=== PATIENT | female | born 1975 | race Two or more races ===

== ENCOUNTER 2021-02-17 10:37 | Outpatient (REF) | payer BC, SELFPAY ==
[2021-02-17 14:19] LABS: MANUAL DIFF FLAG NO
[2021-02-17 14:27] LABS: Basophils Absolute Auto 0.1 X10*3/uL (0.0-0.2); Eosinophils Absolute Auto 0.3 X10*3/uL (0.0-0.4); Eosinophils Percent Auto 5.3 % (0-4); Hematocrit 39.4 % (37-47); Hemoglobin 12.8 g/dl (12.0-16.0); Imm Gran Abs Auto 0.01 X10*3/uL (0.00-0.03); Imm Gran Pct Auto 0.2 % (0.0-0.4); Lymphocytes Absolute Auto 2.2 X10*3/uL (1.2-4.9); Lymphocytes Percent Auto 42.6 % (20-40); Mean Corpuscular HGB Conc 32.5 g/dl (31.0-35.0); Mean Corpuscular Hemoglobin 29.8 pg (27.0-33.0); Mean Corpuscular Volume 91.6 fL (80-98); Monocytes Absolute Auto 0.4 X10*3/uL (0.1-1.2); Monocytes Percent Auto 8.4 % (2-11); Neutrophils Absolute Auto 2.2 X10*3/uL (2.0-8.3); Neutrophils Percent Auto 42.5 % (45-73); Platelet Count 312 X10*3/uL (160-400); Red Cell Distribution Width 14.7 % (11.0-16.0); White Blood Count 5.1 X10*3/uL (4.8-10.8)
[2021-02-17 15:01] LABS: Alanine Aminotransferase 39 U/L (0-31); Albumin Level 4.6 g/dL (3.5-5.0); Alkaline Phosphatase 47 U/L (39-117); Anion Gap 14 (12-20); Aspartate Amino Transferase 57 U/L (5-31); Bilirubin Total 0.5 mg/dL (0.0-1.0); Blood Urea Nitrogen 19 mg/dL (9-16); Calcium 9.8 mg/dL (8.4-10.2); Carbon Dioxide 28 mmol/L (22-29); Chloride 100 mmol/L (96-108); Estimated Glomerular Filt Rate > 60; Glucose Random 80 mg/dL (60-115); Potassium 4.1 mmol/L (3.3-5.1); Sodium 138 mmol/L (135-145); Total Protein 7.7 g/dL (6.5-8.0)
== END 2021-02-17 10:38 | disposition home or self-care (01) ==
LOC: HO.HMGCLDS 10:37
PROVIDERS: Visit Provider Family Medicine
DX: Z79.899 Other long term (current) drug therapy (principal)
CPT/HCPCS: 36415; 80053; 85025

== ENCOUNTER 2021-03-29 10:27 | Outpatient (REF) | payer BC, SELFPAY ==
[2021-03-29 14:29] LABS: Alanine Aminotransferase 20 U/L (0-31); Albumin Level 4.1 g/dL (3.5-5.0); Alkaline Phosphatase 42 U/L (39-117); Aspartate Amino Transferase 28 U/L (5-31); Total Protein 6.7 g/dL (6.5-8.0)
[2021-03-29 14:48] LABS: Bilirubin Direct < 0.2 mg/dL (0.0-0.5); Bilirubin Total 0.4 mg/dL (0.0-1.0)
[2021-03-30 09:51] LABS: DHEA Sulfate 190 mcg/dL (19-231)
[2021-04-02 11:51] LABS: Testosterone, Free 2.5 pg/mL (0.1-6.4); Testosterone, Total 26 ng/dL (2-45)
[2021-04-02 22:42] LABS: Progesterone 0.1 ng/mL
[2021-04-07 04:32] LABS: Estradiol Free 1.05 pg/mL; Estradiol, Ultrasensitive 64 pg/mL
== END 2021-03-29 10:28 | disposition home or self-care (01) ==
LOC: HO.HMGCLDS 10:27
PROVIDERS: PCP Internal Medicine; Visit Provider Family Medicine
DX: N95.8 Other specified menopausal and perimenopausal disorders (principal); R74.8 Abnormal levels of other serum enzymes
CPT/HCPCS: 36415; 80076; 82627; 82670; 82681; 84144; 84402; 84403

== ENCOUNTER 2021-08-22 | Outpatient (REF) | payer BC, SELFPAY ==
[2021-08-27 01:36] LABS: HPV mRNA E6/E7 Not Detected (Not Detected)
== END 2021-08-22 00:01 | disposition home or self-care (01) ==
LOC: HO.LNP
PROVIDERS: Visit Provider Internal Medicine
DX: Z01.419 Encounter for gynecological examination (general) (routine) without abnormal findings (principal); Z90.3 Acquired absence of stomach [part of]
CPT/HCPCS: 87624; 88142

== ENCOUNTER 2021-09-13 15:49 | Outpatient (REF) | payer BC, SELFPAY ==
[2021-09-13 16:35] LABS: Appearance Urine HAZY; Color Urine YELLOW; Glucose Urine UA NEG (NEG); Leukocyte Esterase Urine NEG (NEG); Nitrite Urine NEG (NEG); PH 7.5 (5.0-8.0); Specific Gravity - Urine 1.015 (1.005-1.025); Urine Blood NEG (NEG); Urine Ketones NEG (NEG); Urine Protein NEG (NEG-TRACE)
== END 2021-09-13 15:50 | disposition home or self-care (01) ==
LOC: HO.LAB 15:49
PROVIDERS: Visit Provider Internal Medicine
DX: R10.9 Unspecified abdominal pain (principal); R35.0 Frequency of micturition
CPT/HCPCS: 81003

== ENCOUNTER 2021-09-22 15:07 | Outpatient (REF) | payer BC, SELFPAY ==
--- NOTE | ~2021-09-22 | MM_ITS ---
EXAMINATION: MM SCREENING DIGITAL BREAST TOMOSYNTHESIS, BILATERAL CLINICAL INFORMATION: Screening. Asymptomatic. The lifetime risk of breast cancer based on the Tyrer-Cuzick Model is 5%. COMPARISON: Mammography: 02/14/2019, 02/09/2018, 12/02/2016 TECHNIQUE: Digital breast tomosynthesis is performed in both the craniocaudal and mediolateral oblique views along with computer-aided detection (CAD). Synthesized 2D images are generated from the tomosynthesis. FINDINGS: There are scattered areas of fibroglandular density (ACR BI-RADS breast composition Category b). There are no significant masses, abnormal calcifications, or other abnormalities. No developing density. No significant changes. Skin contours are smooth. MM/MM tomosynthesis screening BI IMPRESSION: No mammographic evidence of malignancy. ASSESSMENT: BI-RADS 1: Negative RECOMMENDATION: Routine annual mammography screening. This patient's information was entered into a reminder system with a target due date for their next mammogram.
== END 2021-09-22 15:08 | disposition home or self-care (01) ==
LOC: HO.MAMMO 15:07
PROVIDERS: PCP Internal Medicine; Visit Provider Internal Medicine
DX: Z12.31 Encounter for screening mammogram for malignant neoplasm of breast (principal)
CPT/HCPCS: 77063; 77067

== ENCOUNTER 2021-11-21 11:04 | Outpatient (REF) | payer BC, SELFPAY ==
--- NOTE | ~2021-11-21 | XR_ITS ---
EXAMINATION: XR CHEST CLINICAL INFORMATION: Covid infection COMPARISON: Previous chest x-ray December 2018 TECHNIQUE: Frontal view of the chest was obtained. FINDINGS: The cardiac and mediastinal contours are normal. The lungs are clear. There is no pleural effusion or pneumothorax. Bony structures are normal. There are surgical clips under the left hemidiaphragm. XR/XR chest 1V IMPRESSION: No evidence for acute disease in the chest.
[2021-11-21 11:30] LABS: Mean Corpuscular HGB Conc 33.3 g/dl (31.0-35.0); Mean Corpuscular Hemoglobin 29.3 pg (27.0-33.0); Mean Platelet Volume 9.5 fL (9.4-12.3); Platelet Count 305 X10*3/uL (160-400); Red Blood Count 4.09 X10*6/uL (4.20-5.50); White Blood Count 4.5 X10*3/uL (4.8-10.8)
[2021-11-21 12:12] LABS: Alanine Aminotransferase 16 U/L (0-31); Albumin Level 4.2 g/dL (3.5-5.0); Alkaline Phosphatase 51 U/L (39-117); Anion Gap 11 (12-20); Aspartate Amino Transferase 23 U/L (5-31); Bilirubin Total 0.4 mg/dL (0.0-1.0); Blood Urea Nitrogen 17 mg/dL (9-16); Calcium 9.6 mg/dL (8.4-10.2); Carbon Dioxide 29 mmol/L (22-29); Chloride 106 mmol/L (96-108); Cholesterol 204 mg/dL; Estimated Glomerular Filt Rate > 60; Glucose Fasting 67 mg/dL (60-99); HDL Cholesterol 86 mg/dL; LDL Cholesterol Calculated 112 mg/dl; Potassium 4.5 mmol/L (3.3-5.1); Sodium 141 mmol/L (135-145); Total Protein 7.2 g/dL (6.5-8.0); Triglycerides 33 mg/dL
[2021-11-21 12:34] LABS: TSH reflex Free T4 0.72 uIU/mL (0.32-4.0)
[2021-11-22 04:19] LABS: SARS COV2 IgG Negative (Negative)
== END 2021-11-21 11:05 | disposition home or self-care (01) ==
LOC: HO.LAB 11:04
PROVIDERS: Absent Provider Surgery Plastic and Reconstructive Surgery; PCP Internal Medicine; Visit Provider Internal Medicine
DX: Z00.00 Encounter for general adult medical examination without abnormal findings (principal); Z01.84 Encounter for antibody response examination; Z86.16 Personal history of COVID-19
CPT/HCPCS: 36415; 71045; 80053; 80061; 84443; 85027; 86769

== ENCOUNTER 2022-02-17 11:11 | Outpatient (REF) | payer BC, SELFPAY ==
--- NOTE | ~2022-02-17 | US_ITS ---
EXAMINATION: US ABDOMEN LIMITED CLINICAL INFORMATION: Status post abdominoplasty. Rule out hematoma. COMPARISON: None TECHNIQUE: Real-time imaging of the umbilical region as indicated by the patient. Scanning performed with patient supine and standing. FINDINGS: No hernia or free fluid identified. No significant hematoma is appreciated. No Doppler images were provided. US/US abdomen limited IMPRESSION: No evidence of hernia or other significant abnormality in region of patient's complaint.
== END 2022-02-17 11:12 | disposition home or self-care (01) ==
LOC: HO.HMGCX 11:11
PROVIDERS: PCP Internal Medicine; Visit Provider Internal Medicine
DX: Z98.890 Other specified postprocedural states (principal)
CPT/HCPCS: 76705

== ENCOUNTER 2022-12-08 08:11 | Outpatient (REF) | payer BC, SELFPAY ==
[2022-12-08 10:31] LABS: MANUAL DIFF FLAG NO
[2022-12-08 10:35] LABS: Basophils Percent Auto 0.7 % (0-2); Eosinophils Absolute Auto 0.3 X10*3/uL (0.0-0.4); Eosinophils Percent Auto 7.8 % (0-4); Hematocrit 38.8 % (37.0-47.0); Hemoglobin 13.1 g/dl (12.0-16.0); Imm Gran Abs Auto 0.01 X10*3/uL (0.00-0.03); Imm Gran Pct Auto 0.2 % (0.0-0.4); Lymphocytes Absolute Auto 1.7 X10*3/uL (1.2-4.9); Lymphocytes Percent Auto 39.7 % (20-40); Mean Corpuscular HGB Conc 33.8 g/dl (31.0-35.0); Mean Corpuscular Hemoglobin 29.4 pg (27.0-33.0); Mean Platelet Volume 9.6 fL (9.4-12.3); Monocytes Absolute Auto 0.2 X10*3/uL (0.1-1.2); Monocytes Percent Auto 5.4 % (2-11); Neutrophils Percent Auto 46.2 % (45-73); Platelet Count 276 X10*3/uL (160-400); Red Blood Count 4.46 X10*6/uL (4.20-5.50); Red Cell Distribution Width 13.8 % (11.0-16.0); White Blood Count 4.2 X10*3/uL (4.8-10.8)
[2022-12-08 11:30] LABS: Estimated Average Glucose 103 mg/dL; Hemoglobin A1c % 5.2 %
[2022-12-08 12:03] LABS: Alanine Aminotransferase 16 U/L (0-31); Albumin Level 4.5 g/dL (3.5-5.0); Alkaline Phosphatase 49 U/L (39-117); Anion Gap 16 (12-20); Aspartate Amino Transferase 28 U/L (5-31); Bilirubin Direct < 0.2 mg/dL (0.0-0.5); Bilirubin Total 0.5 mg/dL (0.0-1.0); Blood Urea Nitrogen 17 mg/dL (9-16); C Reactive Protein 0.11 mg/dL (< or = 0.50); Calcium 9.9 mg/dL (8.4-10.2); Carbon Dioxide 26 mmol/L (22-29); Chloride 104 mmol/L (96-108); Cholesterol 263 mg/dL; Estimated Glomerular Filt Rate > 60; Glucose Random 78 mg/dL (60-115); HDL Cholesterol 93 mg/dL; LDL Cholesterol Calculated 161 mg/dl; Potassium 4.8 mmol/L (3.3-5.1); Sodium 141 mmol/L (135-145); Total Protein 7.4 g/dL (6.5-8.0); Triglycerides 46 mg/dL
[2022-12-08 12:16] LABS: Folate 16.9 ng/mL (> or = 4.0); Vitamin B12 987 pg/mL (200-900); Vitamin D 25-OH Total 56.5 ng/mL (>30)
[2022-12-08 12:57] LABS: Insulin 2 uU/mL (2-29); Thyroid Stimulating Hormone 1.18 uIU/mL (0.32-4.0)
[2022-12-12 15:43] LABS: Zinc 80 mcg/dL (60-130)
[2022-12-12 18:28] LABS: Vitamin C 0.7 mg/dL (0.3-2.7)
[2022-12-13 18:24] LABS: Selenium, Serum 173 mcg/L (63-160)
[2022-12-13 22:44] LABS: Vitamin A 47 mcg/dL (38-98)
[2022-12-15 17:03] LABS: Vitamin B6 89.1 ng/mL (2.1-21.7)
[2022-12-18 02:10] LABS: Vitamin B1 9 nmol/L (8-30)
== END 2022-12-08 08:12 | disposition home or self-care (01) ==
LOC: HO.LAB 08:11
PROVIDERS: PCP Internal Medicine; Visit Provider Physician Assistant
DX: E66.3 Overweight (principal); F41.9 Anxiety disorder, unspecified; F50.9 Eating disorder, unspecified; F51.09 Other insomnia not due to a substance or known physiological condition; F59 Unspecified behavioral syndromes associated with physiological disturbances and physical factors; K21.9 Gastro-esophageal reflux disease without esophagitis
CPT/HCPCS: 36415; 80048; 80061; 80076; 82180; 82306; 82607; 82746; 83036; 83525; 84207; 84255; 84425; 84443; 84590; 84630; 85025; 86140

== ENCOUNTER 2022-12-11 13:54 | Outpatient (REF) | payer BC, SELFPAY ==
--- NOTE | ~2022-12-11 | MM_ITS ---
EXAMINATION: MM SCREENING DIGITAL BREAST TOMOSYNTHESIS, BILATERAL CLINICAL INFORMATION: Screening. Asymptomatic. The lifetime risk of breast cancer based on the Tyrer-Cuzick Model is 5.4%. COMPARISON: Mammography: September 22, 2021 and studies dating back to June 07, 2015 TECHNIQUE: Digital mammography is performed in craniocaudal and mediolateral oblique views along with computer-aided detection (CAD). Digital breast tomosynthesis is performed in implant-displaced craniocaudal and implant-displaced mediolateral oblique views along with computer-aided detection (CAD). Synthesized 2D images are generated from the tomosynthesis. FINDINGS: There are scattered areas of fibroglandular density (ACR BI-RADS breast composition Category b). There are no significant masses, abnormal calcifications, or other abnormalities. Implants appear intact. MM/MM tomosynthesis screen imp BI IMPRESSION: No mammographic evidence of malignancy. ASSESSMENT: BI-RADS 1: Negative RECOMMENDATION: Routine annual mammography screening. This patient's information was entered into a reminder system with a target due date for their next mammogram.
== END 2022-12-11 13:55 | disposition home or self-care (01) ==
LOC: HO.MAMMO 13:54
PROVIDERS: PCP Internal Medicine; Visit Provider Internal Medicine
DX: Z12.31 Encounter for screening mammogram for malignant neoplasm of breast (principal)
CPT/HCPCS: 77063; 77067

== ENCOUNTER 2022-12-20 10:02 | Outpatient (REF) | payer OTHER, BC, SELFPAY ==
--- NOTE | ~2022-12-20 | XR_ITS ---
EXAMINATION: X-RAY CERVICAL SPINE X-RAY LUMBAR SPINE CLINICAL INFORMATION: Unspecified injury COMPARISON: None TECHNIQUE: Cervical spine 4 views. Lumbar spine 3 views. FINDINGS: Cervical spine: The vertebral body sagittal alignment is maintained. No prevertebral soft tissue swelling. Vertebral body heights are maintained. No evidence of acute fracture. Limited evaluation of the dens base, due to overlapping densities, with no obvious fracture identified on the provided views. Disc spaces are maintained. Lung apices are clear. Lumbar spine: Vertebral body sagittal alignment is anatomic. Vertebral body heights are maintained. No acute fracture or compression deformity seen. Disc spaces are maintained. Mild endplate spurring at multiple levels in the visualized spine. Facet degeneration in the lower lumbar spine. Surgical clips in the left abdomen. SI joints are intact.. XR/XR lumbar spine 2-3V IMPRESSION: Cervical spine: No evidence of acute fracture or malalignment. Slight suboptimal evaluation of the base of the dens, described above. Further evaluation with CT scan or MRI as clinically warranted. Lumbar spine: No evidence of acute fracture or malalignment. Mild lumbar spondylosis.
--- NOTE | ~2022-12-20 | XR_ITS ---
EXAMINATION: X-RAY CERVICAL SPINE X-RAY LUMBAR SPINE CLINICAL INFORMATION: Unspecified injury COMPARISON: None TECHNIQUE: Cervical spine 4 views. Lumbar spine 3 views. FINDINGS: Cervical spine: The vertebral body sagittal alignment is maintained. No prevertebral soft tissue swelling. Vertebral body heights are maintained. No evidence of acute fracture. Limited evaluation of the dens base, due to overlapping densities, with no obvious fracture identified on the provided views. Disc spaces are maintained. Lung apices are clear. Lumbar spine: Vertebral body sagittal alignment is anatomic. Vertebral body heights are maintained. No acute fracture or compression deformity seen. Disc spaces are maintained. Mild endplate spurring at multiple levels in the visualized spine. Facet degeneration in the lower lumbar spine. Surgical clips in the left abdomen. SI joints are intact.. XR/XR cervical spine 2V IMPRESSION: Cervical spine: No evidence of acute fracture or malalignment. Slight suboptimal evaluation of the base of the dens, described above. Further evaluation with CT scan or MRI as clinically warranted. Lumbar spine: No evidence of acute fracture or malalignment. Mild lumbar spondylosis.
[2022-12-20 11:30] LABS: Appearance Urine Clear; Color Urine Yellow; Glucose Urine UA Negative (Negative); Leukocyte Esterase Urine Negative (Negative); Nitrite Urine Negative (Negative); Specific Gravity - Urine >= 1.030 (1.005-1.025); UMIC TRIGGER UA YES; Urine Blood Moderate (2+) (Negative); Urine Ketones Negative (Negative); Urine Protein Negative (Neg-Trace)
[2022-12-20 11:34] LABS: Bacteria Urine None Seen (None Seen); Hyaline Casts Urine 0-2 /LPF (0-2); RBC Urine >20 /HPF (0-2); Squamous Epithelial Cell Urine 0-2 /HPF (0-2); WBC Urine 0-5 /HPF (0-5)
== END 2022-12-20 10:03 | disposition home or self-care (01) ==
LOC: HO.HMGCLDS 10:02
PROVIDERS: Visit Provider Internal Medicine
DX: S39.92XA Unspecified injury of lower back, initial encounter (principal); R31.9 Hematuria, unspecified; M54.2 Cervicalgia
CPT/HCPCS: 72040; 72100; 81001; 87086

== ENCOUNTER 2023-01-09 14:04 | Outpatient (REF) | payer OTHER, BC, SELFPAY ==
--- NOTE | ~2023-01-09 | US_ITS ---
EXAMINATION: US RETROPERITONEAL COMPLETE (RENAL) CLINICAL INFORMATION: Hematuria, unspecified. COMPARISON: Ultrasound abdomen limited 02/17/2022. TECHNIQUE: Real-time imaging of the kidneys and bladder. FINDINGS: RIGHT KIDNEY: 10.7 x 5.6 x 5.2 cm (SAG x AP x TRV). The kidney is normal in size, contour, and echogenicity. Renal cortical thickness is normal. No calculi or focal parenchymal lesions. No hydronephrosis. LEFT KIDNEY: 10.7 x 5.2 x 4.8 cm (SAG x AP x TRV). The kidney is normal in size, contour, and echogenicity. Renal cortical thickness is normal. No calculi or focal parenchymal lesions. No hydronephrosis. BLADDER: Well distended and normal. Bilateral ureteral jets are demonstrated. Prevoid bladder volume is 345 mL. Postvoid bladder volume is 19.5 mL. US/US retroperitoneal comp IMPRESSION: Unremarkable renal ultrasound.
== END 2023-01-09 14:05 | disposition home or self-care (01) ==
LOC: HO.US 14:04
PROVIDERS: PCP Internal Medicine; Visit Provider Internal Medicine
DX: R31.9 Hematuria, unspecified (principal)
CPT/HCPCS: 76770

== ENCOUNTER → 2023-01-15 12:00 | Outpatient (BNVA) | payer OTHER, BC, SELFPAY | PROVIDERS: PCP Internal Medicine; Visit Provider Obstetrics & Gynecology | DX: Z13.89 Encounter for screening for other disorder (principal) ==

== ENCOUNTER 2023-02-26 10:48 | Outpatient (REF) | payer BC, SELFPAY ==
--- NOTE | ~2023-02-26 | US_ITS ---
EXAMINATION: US PELVIS CLINICAL INFORMATION: Postmenopausal bleeding. COMPARISON: None available. TECHNIQUE: Ultrasound of the pelvis is performed using both transabdominal and transvaginal transducers along with Doppler. Transvaginal imaging is performed due to inadequate visualization transabdominally. FINDINGS: Uterus: The uterus is anteverted and measures 7.7 x 3.2 x 4.3 cm. The double wall endometrial thickness is 8 mm. The uterus is smooth in contour and has normal myometrial echogenicity. No visible fibroid. Adnexa: Right ovary is visualized. There is normal color flow to the adnexa. There is no ovarian torsion. There is no pelvic ascites or fluid collection. Right ovary measures 2.5 x 1.6 x 2.4 cm. Left ovary is not visualized, no large adnexal mass. US/US pelvic and transvaginal IMPRESSION: * Endometrial thickness is at the upper limits of normal in a postmenopausal patient measuring 8 mm. Recommend correlation with clinical history and gynecologic consult. * Left ovary is not visualized, no large adnexal mass.
== END 2023-02-26 10:49 | disposition home or self-care (01) ==
LOC: HO.US 10:48
PROVIDERS: PCP Internal Medicine; Visit Provider Obstetrics & Gynecology
DX: N95.0 Postmenopausal bleeding (principal)
CPT/HCPCS: 76830; 76856

== ENCOUNTER 2023-03-12 09:16 | Outpatient (REF) | payer BC, SELFPAY | END 2023-03-12 09:17 | disposition home or self-care (01) | LOC: HO.LNP 09:16 | PROVIDERS: PCP Internal Medicine; Visit Provider Obstetrics & Gynecology | DX: N95.0 Postmenopausal bleeding (principal); R31.9 Hematuria, unspecified | CPT/HCPCS: 58100; 81003; 88305 ==

== ENCOUNTER 2023-03-21 15:00 | Outpatient (RCR) | payer OTHER, BC, SELFPAY ==
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
--- NOTE | 2023-03-21 15:31 | MHC.PT.DC ---
[facility] [place] [facility] [place] [facility] [place] [facility] [address] [place] C[place] [address] [facility] [phone] F: [phone] F: [phone] F: [phone] F: [phone] Physical Therapy Discharge Report Diagnosis: injury of low back, cervicalgia Date of Surgery: n/a Date of Evaluation: 01/02/23 Date of Discharge: 03/21/23 Treatments to Date: 10 Cancellations to Date: 2 No Shows to Date: 0 Discharge Status: Recommend MD Follow-up Discharge Summary: 03/21/2023: Pt has made some progress since beginning PT. Her pain is better but she is still experiencing headaches that become quite severe at times. She had time off of work but has since returned. Her sx are especially worse when looking at screens or being in the car for long periods of time. At this point we have maximized all we can in PT. She is scheduled to see neurology in a couple weeks and I encouraged her to attend this appointment. She may benefit from continued PT with a therapist who specializes in concussions if symptoms continue. Electronically signed by: Cristal Isabel, PT, DPT, ATC Please sign and return to therapist. Thank you for your referral.
== END 2023-03-21 15:31 | disposition home or self-care (01) ==
LOC: HO.PTCHIC 15:00
PROVIDERS: PCP Internal Medicine; Visit Provider Internal Medicine
DX: M54.2 Cervicalgia (principal); S39.92XD Unspecified injury of lower back, subsequent encounter
CPT/HCPCS: 97014; 97110; 97140; 97161

== ENCOUNTER → 2023-04-09 08:37 | Outpatient (BNVA) | payer BC, SELFPAY | PROVIDERS: PCP Internal Medicine; Visit Provider Obstetrics & Gynecology ==

== ENCOUNTER → 2023-04-17 08:20 | Outpatient (BNVA) | payer BC, SELFPAY | PROVIDERS: PCP Internal Medicine; Visit Provider Nurse Practitioner Family ==

== ENCOUNTER 2023-05-31 14:00 | Outpatient (RCR) | payer OTHER, BC, SELFPAY ==
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
== END 2023-07-03 10:19 | disposition home or self-care (01) ==
LOC: HO.OT 14:00
PROVIDERS: PCP Internal Medicine; Visit Provider Nurse Practitioner Family
DX: F07.81 Postconcussional syndrome (principal)
CPT/HCPCS: 97165; 97530

== ENCOUNTER 2023-07-20 11:46 | Outpatient (AMB) | payer BC, SELFPAY ==
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
--- OUTSIDE RECORDS SUMMARY | 2023-07-20 11:47 | XMS_ITS | Continuity of Care Document ---
Author Name Unknown Organization [facility] Address [address] [facility] 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 Name Role Phone Darren Emery MD Primary Care Physician [phone] Encounter [facility] [place] Date(s): 02/22/23 - 03/24/23 [facility] [address] [place] [address] [address] [place] [address]- Allergies, Adverse Reactions, Alerts Substance Reaction Severity Status penicillins Active Medications One-A-Day Women 1 tablet, By Mouth, Daily, 0 Refills, Maintenance, 05/05/19 15:09:17 EDT Start Date: 05/05/19 Status: Ordered Problem List Condition Confirmation Course Effective Dates Status Health [facility] Informant Heartburn Confirmed Active Obesity Confirmed Active Patient Care team information Care Team Personnel Name: Darren Emery MD Position: Reference Physician Member Role: PCP Address: Address: [address] [place] [address]- Care Team Related Persons Name: ANTHONY VINCENT Address: home [address] [facility] [address] [place] [address]
== END 2023-07-20 12:50 | disposition home or self-care (01) ==
LOC: HO.HSMS 11:46
PROVIDERS: PCP Internal Medicine; Visit Provider Nurse Practitioner Family
DX: Z04.3 Encounter for examination and observation following other accident (principal); Z87.820 Personal history of traumatic brain injury; F07.81 Postconcussional syndrome; G44.309 Post-traumatic headache, unspecified, not intractable
CPT/HCPCS: 99214

== ENCOUNTER → 2023-07-20 11:46 | Outpatient (BNVA) | payer BC, SELFPAY | PROVIDERS: PCP Internal Medicine; Visit Provider Nurse Practitioner Family | DX: M54.9 Dorsalgia, unspecified (principal) ==

== ENCOUNTER 2023-07-21 07:41 | Outpatient (REF) | payer BC, SELFPAY ==
[2023-07-21 08:07] LABS: MANUAL DIFF FLAG NO
[2023-07-21 08:44] LABS: Basophils Percent Auto 0.7 % (0-2); Eosinophils Absolute Auto 0.2 X10*3/uL (0.0-0.4); Eosinophils Percent Auto 3.8 % (0-4); Hematocrit 36.8 % (37.0-47.0); Hemoglobin 12.3 g/dl (12.0-16.0); Imm Gran Abs Auto 0.01 X10*3/uL (0.00-0.03); Imm Gran Pct Auto 0.2 % (0.0-0.4); Lymphocytes Absolute Auto 2.2 X10*3/uL (1.2-4.9); Lymphocytes Percent Auto 49.7 % (20-40); Mean Corpuscular HGB Conc 33.4 g/dl (31.0-35.0); Mean Corpuscular Hemoglobin 29.6 pg (27.0-33.0); Mean Corpuscular Volume 88.5 fL (80.0-98.0); Mean Platelet Volume 9.9 fL (9.4-12.3); Monocytes Absolute Auto 0.3 X10*3/uL (0.1-1.2); Monocytes Percent Auto 7.2 % (2-11); Neutrophils Absolute Auto 1.7 x10*3/uL (2.0-8.3); Neutrophils Percent Auto 38.4 % (45-73); Platelet Count 249 X10*3/uL (160-400); Red Blood Count 4.16 X10*6/uL (4.20-5.50); Red Cell Distribution Width 13.9 % (11.0-16.0); White Blood Count 4.4 X10*3/uL (4.8-10.8)
[2023-07-21 09:29] LABS: Alanine Aminotransferase 24 U/L (0-31); Albumin Level 4.3 g/dL (3.5-5.0); Alkaline Phosphatase 43 U/L (39-117); Anion Gap 11 (12-20); Aspartate Amino Transferase 49 U/L (5-31); Bilirubin Total 0.3 mg/dL (0.0-1.0); Blood Urea Nitrogen 12 mg/dL (9-16); Calcium 9.8 mg/dL (8.4-10.2); Carbon Dioxide 29 mmol/L (22-29); Chloride 107 mmol/L (96-108); Estimated Glomerular Filt Rate > 60; Glucose Random 83 mg/dL (60-115); Potassium 4.6 mmol/L (3.3-5.1); Sodium 142 mmol/L (135-145); Total Protein 7.4 g/dL (6.5-8.0)
== END 2023-07-21 07:42 | disposition home or self-care (01) ==
LOC: HO.LAB 07:41
PROVIDERS: PCP Internal Medicine; Visit Provider Family Medicine
DX: Z79.899 Other long term (current) drug therapy (principal)
CPT/HCPCS: 36415; 80053; 85025

== ENCOUNTER 2023-11-13 11:03 | Outpatient (AMB) | payer BC, SELFPAY ==
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
== END 2023-11-13 16:06 | disposition home or self-care (01) ==
LOC: HO.HSMS 11:03
PROVIDERS: PCP Internal Medicine; Visit Provider Nurse Practitioner Family
DX: Z04.3 Encounter for examination and observation following other accident (principal); F07.81 Postconcussional syndrome; G44.309 Post-traumatic headache, unspecified, not intractable; Z04.1 Encounter for examination and observation following transport accident
CPT/HCPCS: 99214

== ENCOUNTER → 2023-11-13 11:03 | Outpatient (BNVA) | payer BC, SELFPAY | PROVIDERS: PCP Internal Medicine; Visit Provider Nurse Practitioner Family ==

== ENCOUNTER 2025-07-07 11:06 | Outpatient (REF) | payer BC, SELFPAY ==
[2025-07-07 12:55] LABS: MANUAL DIFF FLAG NO
[2025-07-07 12:59] LABS: Appearance Urine Clear; Glucose Urine UA Negative (Negative); PH 6.5 (5.0-9.0); Specific Gravity - Urine 1.020 (1.005-1.025); UMIC TRIGGER UA YES
[2025-07-07 13:12] LABS: Hematocrit 35.1 % (37.0-47.0); Hemoglobin 12.0 g/dl (12.0-16.0); Imm Gran Abs Auto 0.01 X10*3/uL (0.00-0.03); Imm Gran Pct Auto 0.2 % (0.0-0.4); Lymphocytes Absolute Auto 2.1 X10*3/uL (1.2-4.9); Mean Corpuscular HGB Conc 34.2 g/dl (31.0-35.0); Mean Corpuscular Hemoglobin 30.9 pg (27.0-33.0); Mean Corpuscular Volume 90.5 fL (80.0-98.0); NRBC Abs Auto 0.000 X10*3/uL (0.0-0.012); NRBC Pct Auto 0.0 /100WBC (0.0-0.2); Platelet Count 287 X10*3/uL (160-400); Red Blood Count 3.88 X10*6/uL (4.20-5.50); White Blood Count 5.3 X10*3/uL (4.8-10.8)
[2025-07-07 13:47] LABS: Alanine Aminotransferase 18 U/L (0-31); Albumin Level 4.5 g/dL (3.5-5.0); Alkaline Phosphatase 47 U/L (39-117); Anion Gap 12 (12-20); Aspartate Amino Transferase 33 U/L (5-31); Blood Urea Nitrogen 15 mg/dL (9-16); Calcium 9.3 mg/dL (8.4-10.2); Carbon Dioxide 28 mmol/L (22-29); Chloride 107 mmol/L (96-108); Cholesterol 209 mg/dL (<200); Estimated Glomerular Filt Rate > 60; HDL Cholesterol 84 mg/dL (>40); Potassium 4.2 mmol/L (3.3-5.1); Sodium 143 mmol/L (135-145); Total Protein 7.1 g/dL (6.5-8.0); Triglycerides 66 mg/dL (<150)
== END 2025-07-07 11:07 | disposition home or self-care (01) ==
LOC: HO.HMGCLDS 11:06
PROVIDERS: PCP Internal Medicine; Visit Provider Internal Medicine
DX: Z00.00 Encounter for general adult medical examination without abnormal findings (principal); Z12.11 Encounter for screening for malignant neoplasm of colon; Z92.89 Personal history of other medical treatment; R79.89 Other specified abnormal findings of blood chemistry
CPT/HCPCS: 36415; 80053; 80061; 81001; 84443; 85025; 96127

== ENCOUNTER 2025-07-07 11:06 | Outpatient (AMB) | payer BC, SELFPAY ==
--- NOTE | 2025-07-07 11:12 | A.OFFPC_ITS ---
Vital Signs 07/07/25 11:13 Height 5 ft 1 in Weight 132 lb BMI 24.9 BP 100/64 Blood Pressure Location Rt brachial Position Sitting Respiration 18 Pulse 68 Pulse Source Pulse Oximeter Temp 98.5 F Temp Source Oral Pulse Oximetry (%) 97 Oxygen Delivery Method Room Air Intake Visit Reasons: Kidney function Intake Note: Pt is here today for a follow up visit on new medication. Allergies Penicillins Allergy (Mild, Verified 07/07/25 11:16) RASH penicillin V Allergy (Unknown, Verified 07/07/25 11:16) rash Medication List - Last Reconciled 07/07/25 by Ashley Coker MD emtricitabine-tenofovir (TDF) 200-300 mg 1 tab PO DAILY ibuprofen 800 mg PO Q8H PRN lorazepam (Ativan) 0.5 mg PO DAILY PRN multivit with min-folic acid 200 mcg (Adult Multivitamin Gummies) tabs PO riboflavin (vitamin B2) 400 mg PO DAILY 30 days Tobacco use date assessed: 07/07/25 Dental Screening Dental Screen Date: 07/07/25 Did you have a dental visit in the last 12 months?: Yes Did you have a dental problem in the last 6 months where you did not have access to dental care?: No Was dental information given to patient?: Patient has dentist HPI Kidney function HPI Details Patient presents for the follow-up visit. She has been taking Truvada for HIV prophylaxis after she has started dating but was noted by her PCP in [place] that her creatinine level was elevated. Patient has stopped the medication. She denies any recent hospitalizations, radiology tests using IV contrast, hematuria, dysuria, change in urinary frequency. [facility] Medical History (Updated 07/07/25 @ 11:59 by Ashley Coker MD) Elevated serum creatinine Normal pelvic exam Colon cancer screening COVID Excess skin of abdomen Abdominal pain Annual physical exam Surgical History H/O abdominoplasty History of sleeve gastrectomy History of right oophorectomy Family History Father Hypertension Diabetes Mother Diabetes Other Mental health disorder Substance use disorder Social History Housing: House Alcohol intake: current Alcohol intake frequency: holidays/special occasions only Patient Tobacco Use Status: Never used Tobacco e-Cigarette/Vaping Use: Never Used service: No Current occupational status: employed Cognitive needs: No Hearing needs: No Vision needs: Yes Female Reproductive History Menstrual Age of Menarche: 11 Questionnaire PHQ-9 Over the last 2 weeks, how often have you been bothered by any of the following problems? 1. Little interest or pleasure in doing things: not at all 2. Feeling down, depressed, or hopeless: not at all 3. Trouble falling or staying asleep, or sleeping too much: not at all 4. Feeling tired or having little energy: not at all 5. Poor appetite or overeating: not at all 6. Feeling bad about yourself - or that you are a failure or have let yourself or your family down: not at all 7. Trouble concentrating on things, such as reading the newspaper or watching television: not at all 8. Moving or speaking so slowly that other people could have noticed. Or the opposite - being so fidgety or restless that you have been moving around a lot more than usual: not at all 9. Thoughts that you would be better off or of hurting yourself in some way: not at all Total score: 0 Depression Screening Interpretation: Negative Depression Screening Done: Yes 76846 - PHQ-9 Billing: Yes Source: Developed by Drs. Kirk Lee, Andria Zarate, Danny Luna and colleagues, with an educational damian from [employer]. Thrive Questionnaire Date Thrive assessed: 07/07/25 I am a: Patient What is your living situation today?: I have a steady place to live Within the past 12 months, did the food you bought not last and you didn't have the money to get more?: Never true Within the past 12 months, did you worry whether your food would run out before you got money to buy more?: Never true Do you have trouble paying for medicines?: No Do you have trouble getting transportation to medical appointments?: No Do you have trouble paying your heating and electricity bill?: No Do you have trouble taking care of your child, family member or friend?: No Do you have trouble with day-to-day activities such as bathing, preparing meals, shopping, managing finances, etc.?: No Are you currently unemployed and looking for a job?: No Are you interested in more education?: No Please select the resources that you would like help with: None Currently or been in a relationship where the following occur: No concerns reported THRIVE Score: 0 AUDIT C Alcohol Use Questionnaire (AUDIT-C) 1. How often do you have a drink containing alcohol?: Monthly or less 2. How many drinks containing alcohol do you have on a typical day when you are drinking?: 1 or 2 3. How often do you have six or more drinks on one occasion?: Never Total Score: 1 KENNETH-7 AMB Questionnaire KENNETH-7 Date KENNETH - 7 assessed: 07/07/25 Feeling nervous, anxious, or on edge: 1 = Several days Not being able to stop or control worryin = Not at all Worrying too much about different things: 0 = Not at all Trouble relaxin = Several days Being so restless that it is hard to sit still: 0 = Not at all Becoming easily annoyed or irritable: 1 = Several days Feeling afraid as if something awful might happen: 1 = Several days Total KENNETH-7 score (0-4 normal; 5-9 mild; 10-14 moderate; 15-21 severe): 4 Source: Developed by Drs. Kirk Lee, Andria Zarate, Danny Luna and colleagues, with an educational damian from [employer]. KENNETH-7 Assessment Billing KENNETH-7 Assessment Tool: KENNETH-7 Assessment 57080 Physical exam (Primary Care) Vital Signs: Last Vital Signs Temp 98.5 F 07/07/25 11:13 Pulse 68 07/07/25 11:13 Resp 18 07/07/25 11:13 BP 100/64 07/07/25 11:13 Pulse Ox 97 07/07/25 11:13 Oxygen Delivery Method Room Air 07/07/25 11:13 BMI result Body Mass Index 24.9 Tobacco/Smoking Status: Tobacco use Status Tobacco use date assessed 07/07/25 07/07/25 11:22 Patient Tobacco Use Status Never used Tobacco 07/07/25 11:22 e-Cigarette/Vaping Use Never Used 07/07/25 11:13 PHQ-9: PHQ-9 Score PHQ-9: Total score 0 07/07/25 11:22 Depression Screening Interpretation: Negative Thrive Assessment: Date of Thrive Assessment Date Thrive assessed 07/07/25 07/07/25 11:13 Currently or been in a relationship where the following occur: No concerns reported Const General: no acute distress HENMT Head: Yes normal to inspection Face and sinus: Yes normal facial exam Eyes General: appearance normal, both eyes and all related structures Neck Neck: Yes supple Resp Effort & Inspection: normal respiratory effort Auscultation: clear to auscultation bilaterally Cardio Rhythm: regular rhythm Heart sounds: S1 normal heart sound present and S2 normal heart sound present GI Inspection: Yes normal to inspection Palpation (GI): Soft to palpation Percussion: Yes normal to percussion Auscultation: normal bowel sounds Extrem General: Yes no clubbing, cyanosis or edema Coding Level of Care Code Est Pt Level 3 (70360) Diagnoses Colon cancer screening Z12.11 History of mammography, screening Z. Elevated serum creatinine R79.89 Additional Codes KENNETH-7 Assessment Billing - KENNETH-7 Assessment Tool: KENNETH-7 Assessment 79893 ([id number]) PHQ-9 - 92153 - PHQ-9 Billing: Yes ([id number]) Assessment & Plan Assessment & Plan (1) Colon cancer screening: Comment: negative Cologuard 07/2023 Code(s): Z12.11 - Encounter for screening for malignant neoplasm of colon Category: Medical Plan: Up-to-date (2) History of mammography, screening: Comment: in 2024 Code(s): Z92.89 - Personal history of other medical treatment Category: Medical Plan: Up-to-date (3) Elevated serum creatinine: Code(s): R79.89 - Other specified abnormal findings of blood chemistry Category: Medical Plan: Obtain blood work and urinalysis today. Patient was advised to avoid NSAIDs increase fluid intake. If creatinine level is abnormal renal ultrasound will be obtained Orders: Orders Comprehensive [place]. Panel Fast Today Z00.00 - Encounter for general adult medical examination without abnormal findings Complete Blood Count Auto Diff Today Z00.00 - Encounter for general adult medical examination without abnormal findings TSH reflex Free T4 Today Z00.00 - Encounter for general adult medical examination without abnormal findings UA w Microscopic Today Z00.00 - Encounter for general adult medical examination without abnormal findings Lipid Panel Today Z00.00 - Encounter for general adult medical examination without abnormal findings Medications: Discontinued riboflavin (vitamin B2) Discontinued Reason: Doctor's Order 400 mg PO DAILY 30 days 30 tabs 6RF ibuprofen Discontinued Reason: Doctor's Order 800 mg PO Q8H PRN 60 tabs 0RF pain
[2025-07-07 11:13] VITALS: BP 100/64; PULSE 68; RESP 18; TEMP 36.9; O2SAT 97; BMI 24.9
--- OUTSIDE RECORDS SUMMARY | 2025-07-07 12:44 | XMS_ITS | Clinical Summary ---
Author Organization [facility] it Address [address] [place] [address] Care Team Providers Care Manager Logistic Name Role Phone Unavailable Primary Care Provider Unavailabl e Social History Tobacco Use Types Packs/Day Years Used Date Smoking Tobacco: Never Assessed Comments Unknown Sex and Gender Information Value Date Recorded Sex Assigned at Not on file Legal Sex Female 9:12 AM EST Gender Identity Not on file Sexual Orientation Not on file Plan of Treatment Health Maintenance Due Date Last Done Comments Breast Cancer Screening 1974 DTaP,Tdap,and Td Vaccines (1 - Tdap) 1993 Hepatitis B Vaccines (1 of 3 - 19+ 3-dose series) 1993 Cervical Cancer Screening: P ap Smear 1995 Colorectal Cancer Screening: Colonoscopy 12/04/2023 HIV Screening 12/04/2023 Hepatitis C Screening 12/04/2023 Social Influencers of Health Screening 12/04/2023 Depression Screening 11/05/2024 Pneumococcal Vaccine: 50+ Ye ars (1 of 1 - PCV) 2024 Zoster Vaccines (1 of 2) 2024 COVID-19 Vaccine (1 - 2023-2 5 season) 2025 Influenza Vaccine (#1) 2025 HIB Vaccines Aged Out No longer eligi ble based on patient's age to complete this topic HPV Vaccines Aged Out No longer eligi ble based on patient's age to complete this topic Hepatitis A Vaccines Aged Out No long er eligible based on patient's age to complete this topic IPV Vaccines Aged Out No longer eligi ble based on patient's age to complete this topic MMR Vaccines Aged Out No longer eligi ble based on patient's age to complete this topic Meningococcal ACWY Vaccine Aged Out N o longer eligible based on patient's age to complete this topic Meningococcal B Vaccine Aged Out No l onger eligible based on patient's age to complete this topic RSV Immunization Patients Un edilma 20 months Aged Out No longer eligible b ased on patient's age to complete this topic Varicella Vaccines Aged Out No longer eligible based on patient's age to complete this topic Advance Directives Documents on File Type Date Recorded 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
== END 2025-07-07 12:02 | disposition home or self-care (01) ==
LOC: HO.HMCC 11:10
PROVIDERS: PCP Internal Medicine; Visit Provider Internal Medicine
DX: Z12.11 Encounter for screening for malignant neoplasm of colon (principal); Z92.89 Personal history of other medical treatment; R79.89 Other specified abnormal findings of blood chemistry

== ENCOUNTER 2025-10-06 10:08 | Outpatient (REF) | payer BC, SELFPAY | END 2025-10-06 10:09 | disposition home or self-care (01) | LOC: HO.LAB 10:08 | PROVIDERS: PCP Internal Medicine; Visit Provider Physician Assistant | DX: N30.01 Acute cystitis with hematuria (principal) | CPT/HCPCS: 81003; 87086; 87088; 87186 ==

== ENCOUNTER 2025-10-06 10:08 | Outpatient (AMB) | payer BC, SELFPAY ==
[2025-10-06 10:12] VITALS: BP 112/70; PULSE 54; TEMP 36.3; O2SAT 100; BMI 25.1
--- NOTE | 2025-10-06 10:12 | AM.OFFWIN_ITS ---
Intake Vital Signs 10/06/25 10:12 Height 5 ft 1 in Weight 133 lb BMI 25.1 BP 112/70 Blood Pressure Location Lt brachial Position Sitting Pulse 54 Pulse Source Pulse Oximeter Temp 97.4 F Temp Source Oral Pulse Oximetry (%) 100 Oxygen Delivery Method Room Air Intake Visit Reasons: EP UTI? Intake Note: pt presents with pain at the end of urine flow, bladder doesn't feel empty, odor to urine, spotting blood - s/s started yesterday and worsened today Patient Tobacco Use Status: Never used Tobacco Allergies Penicillins Allergy (Mild, Verified 10/06/25 10:18) RASH Do you need a note to return to daycare/school/sports/work: No HPI HPI Comments History of Present Illness Details History - The patient is a 49 year old individua l presenting with symptoms concerning for a urinary tract infection. - The patient felt off and had abdomin al bloating yesterday, and this morning developed painful urination, urinary frequency, and malodorous urine. - The patient also reports seeing blood when cleaning after urination, but denies fever, malaise, or back pain. - The patient has a history of urinary t ract infections, with the last episode occurring in the summer of this year. - Office records indicate a visit in Dec where a urine culture showed no growth. - The patient reports a history of a pen icillin allergy that caused a rash many years ago and denies any history of kidney stones. - The patient has been menopausal for ye ars and is not taking any gcuj-yiu-ellvjgl medications for the current symptoms. [facility] Medical History (Updated 10/06/25 @ 10:44 by La Carpio PA-C) Elevated serum creatinine Normal pelvic exam Colon cancer screening COVID Excess skin of abdomen Abdominal pain Annual physical exam Surgical History H/O abdominoplasty History of sleeve gastrectomy History of right oophorectomy Family History Father Hypertension Diabetes Mother Diabetes Other Mental health disorder Substance use disorder Social History Housing: House Alcohol intake: current Alcohol intake frequency: holidays/special occasions only Patient Tobacco Use Status: Never used Tobacco e-Cigarette/Vaping Use: Never Used service: No Current occupational status: employed Cognitive needs: No Hearing needs: No Vision needs: Yes Female Reproductive History Menstrual Age of Menarche: 11 Review of Systems Narrative Review of Systems - Constitutional: Denies fever or malaise. - Gastrointestinal: Reports abdominal bloating. Denies abdominal pain. - Genitourinary: Reports dysuria, urinary frequency, and malodorous urine. Reports blood on toilet paper when wiping. Denies back pain. All systems reviewed and are unremarkable except as noted in HPI Physical Exam Exam Exam: Physical Exam General: Cooperative, healthy appearing, comfortable, no acute distress and well developed Orientation: Patient oriented x3 Limitations: No limitations Head: Normal to inspection Ears: Hearing grossly normal bilaterally Face and sinus: Normal facial exam Neck: Normal visual inspection and Yes full ROM Respiratory: Normal respiratory effort and able to speak in complete sentences. Skin: No rashes or lesions noted Neuro: Patient oriented x3 Back/spine: negative CVA bilaterally Vital Signs: Last Vital Signs Temp 97.4 F 10/06/25 10:12 Pulse 54 10/06/25 10:12 BP 112/70 10/06/25 10:12 Pulse Ox 100 10/06/25 10:12 Oxygen Delivery Method Room Air 10/06/25 10:12 BMI result Body Mass Index 25.1 Results AMB Urinalysis, Automated UA Leukoctes 125 Patricia/uL Last Edit by Krystina Watts CMA on 10/06/25 10:25 2+ Krystina Watts 10/06/25 10:25 UA Nitrite Negative Last Edit by Krystina Watts CMA on 10/06/25 10:25 UA Urobilinogen 0.2 mg/dL Last Edit by Krystina Watts CMA on 10/06/25 10:2 5 UA Protein 30 mg/dL Last Edit by Krystina Watts CMA on 10/06/25 10:25 1+ Krystina Watts 10/06/25 10:25 UA pH 6.5 Last Edit by Krystina Watts CMA on 10/06/25 10:25 UA Blood 200 Cecil/uL Last Edit by Krystina Watts CMA on 10/06/25 10:25 3+ Krystina Watts 10/06/25 10:25 UA Specific Ione 1.020 Last Edit by Krystina Watts CMA on 10/06/25 10: 25 UA Ketone Negative Last Edit by Krystina Watts CMA on 10/06/25 10:25 UA Bilirubin 0 mg/dL Last Edit by Krystina Watts CMA on 10/06/25 10:25 UA Glucose 0 mg/dL Last Edit by Krystina Watts CMA on 10/06/25 10:25 Results Reviewed Results Reviewed: Laboratory Last Values Urine pH (Auto) 6.5 10/06/25 10:23 Specific Ione (Auto) 1.020 10/06/25 10:23 Urine Protein (Auto) 30 mg/dL H* 10/06/25 10:23 Glucose (UA)(Auto) 0 mg/dL 10/06/25 10:23 Urine Ketones (Auto) Negative 10/06/25 10:23 Urine Blood (Auto) 200 Cecil/uL H* 10/06/25 10:23 Urine Nitrite (Auto) Negative 10/06/25 10:23 Urine Bilirubin (Auto) 0 mg/dL 10/06/25 10:23 Urine Urobilinogen (Auto) 0.2 mg/dL 10/06/25 10:23 Leukocyte Esterase (Auto) 125 Patricia/uL H* 10/06/25 10:23 Assessment & Plan Assessment & Plan (1) UTI (urinary tract infection): Code(s): N39.0 - Urinary tract infection, site not specified Qualifiers: Urinary tract infection type: acute cystitis Hematuria presence: with hematuria Qualified Code(s): N30.01 - Acute cystitis with hematuria Plan Plan - The patient's symptoms are highly suggestive of a urinary tract infection, despite the nitrite being negative on urinalysis, which showed positive leukocytes and blood. - A urine culture will be performed, and the patient will be contacted if the antibiotic needs to be changed based on sensitivity results. - Cefuroxime will be prescribed, to be taken every 12 hours for 5 days. - The patient has a remote history of a rash with penicillin; the low risk of cross-reactivity with Cefuroxime was discussed, and the patient agreed to try it. The patient was instructed to message through the portal if a rash develops so a different antibiotic can be prescribed. - Phenazopyridine (Pyridium) was also prescribed, one tablet every eight hours as needed for dysuria, for the first two days. - The patient was counseled that Phenazopyridine will cause the urine to turn orange. - The patient was advised to increase fluid intake to help flush bacteria. Patient was informed and verbally consented to the use of an ambient scribe for clinic note documentation during this visit. Orders: Orders AMB Urinalysis Automated Today Z13.9 - Encounter for screening, unspecified Urine Culture Today N39.0 - Urinary tract infection, site not specified Medications: New cefuroxime axetil 500 mg PO Q12H 10 tabs 0RF phenazopyridine 100 mg PO Q8H PRN 6 tabs 0RF Pain Coding Level of Care Code Est Pt Level 3 (11484) Diagnoses Acute cystitis with hematuria N30.01 Urinary tract infection type: acute cystitis Hematuria presence: with hematuria
--- OUTSIDE RECORDS SUMMARY | 2025-10-06 11:31 | XMS_ITS | Clinical Summary ---
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 Name Role Phone Unavailable Primary Care Provider [...] Last Done Comments Breast Cancer Screening 1974 Colorectal Cancer Screening: Colonoscopy 1974 DTaP,Tdap,and Td Vaccines (1 - Tdap) 1993 Hepatitis B Vaccines (1 of 3 - 19+ 3-dose series) 1993 Cervical Cancer Screening: P ap Smear 1995 HIV Screening 12/04/2023 Hepatitis C Screening 12/04/2023 Social Influencers of Health Screening 12/04/2023 Depression Screening 11/05/2024 Pneumococcal Vaccine: 50+ Ye ars (1 of 1 - PCV) 2024 Zoster Vaccines (1 of 2) 2024 COVID-19 Vaccine (1 - 2024-2 6 season) 2025 Influenza Vaccine (#1) 2025 RSV Immunization Adult Patie nts (1 - 1-dose 75+ series) 2049 HIB Vaccines Aged Out No longer eligi [...] Documents on File Type Date Recorded 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
== END 2025-10-06 10:45 | disposition home or self-care (01) ==
PROVIDERS: PCP Internal Medicine; Visit Provider Physician Assistant
DX: N30.01 Acute cystitis with hematuria (principal); Z13.9 Encounter for screening, unspecified